=== PATIENT | male | born 1950 | race Two or more races ===

== ENCOUNTER 2024-08-14 13:54 | Outpatient (RCR) | payer MEDICARE, SELFPAY ==
--- NOTE | 2024-08-14 14:46 | CTCFLWUP_ITS ---
[facility] [address] [place], [place] [address] FOLLOW-UP NOTE Date: 08/14/2024 MR#: [id number] Name: KASANDRA WHITE : 1950 Dx: [id number] Malignant neoplasm of prostate Identification: Prostate CA XRT 7000 Gy completed 02/02/23. Last PSA < 0.1 02/14/24. Getting Lupron shots with Dr Mathur Doing well clinically. No sig pelvic sx. I will seen him on prn basis. Electronically signed by: Mono Castrejon M.D. 08/14/2024 2:44 PM
== END 2024-09-04 23:59 | disposition home or self-care (01) ==
LOC: SCTC 13:54
PROVIDERS: PCP Family Medicine; Referring Provider Family Medicine; Visit Provider Radiology Therapeutic Radiology
DX: C61 Malignant neoplasm of prostate (principal); Z92.3 Personal history of irradiation; Z79.818 Long term (current) use of other agents affecting estrogen receptors and estrogen levels
CPT/HCPCS: 99212; G0463